=== PATIENT | male | born 2005 | race Caucasian/White ===

== ENCOUNTER 2024-10-19 16:24 | Emergency (ER) | payer SELFPAY ==
--- NOTE | ~2024-10-19 | XR_ITS ---
XR chest 2V DATE: 10/19/2024 17:11 INDICATION: Painful breathing TECHNIQUE: PA and lateral views COMPARISON: None FINDINGS: Normal heart size. No hilar or mediastinal enlargement. No pulmonary infiltrate or consolid ation, pleural effusion or pulmonary vascular congestion or pneumothorax is detected. Mild mid thorac ic dextroscoliosis. IMPRESSION: No active cardiopulmonary disease Reviewed, dictated and finalized at location A. [facility]
[2024-10-19 16:39] VITALS: BP 119/64; PULSE 79; RESP 16; TEMP 37.1; O2SAT 99
--- NOTE | 2024-10-19 16:48 | ED_ITS ---
HPI - URI/Sore Throat General Chief Complaint: Upper Respiratory Infection Stated Complaint: Chest Pain Time Seen by Provider: 10/19/24 16:49 Source: patient Mode of arrival: ambulatory Limitations: no limitations History of Present Illness HPI Narrative: 19 y/o male presented for c/o chest pain with breathing. Reports painful inspiration for 3 days. The pain is frequent, rates Pain 5-8/10, described as sharp across the chest. Endorses similar symptoms intermittently for a few months. Not taking anything for pain. Denies injury or over use. Denies recent cough or illness, sob, wheezing, n/v/d/f/c. Related Data Home Medications Medication Instructions Recorded Confirmed No Home Medications 10/19/24 10/19/24 Allergies Allergy/AdvReac Type Severity Reaction Status Date / Time No Known Allergies Allergy Verified 10/19/24 16:58 Review of Systems Review of Systems: CONSTITUTIONAL: Denies body aches, fever, chills, or sweats. EYES: Denies visual changes, redness, or discharge. ENT: Denies rhinorrhea, congestion, sore throat, or otalgia. CARDIOVASCULAR: Denies chest pain, palpitations, or edema. RESPIRATORY: reports painful respirations Denies cough or dyspnea. GASTROINTESTINAL: Denies abdominal pain, nausea, vomiting, or diarrhea. SKIN: Denies rash or wounds. NEUROLOGIC: Denies headache, numbness, tingling, or weakness. All systems reviewed & are unremarkable except as noted in HPI and below PMFSH Comments At time of signature, I have reviewed and agree with nursing past medical, surgical, social and family history unless otherwise noted. Please see nursing chart for further information. There is no relevant family history pertinent to the presenting complaint Exam Narrative: GENERAL: Well-appearing, in no acute distress. EYES: EOMI. No redness or drainage. Conjunctivae normal. ENT: Mucous membranes pink and moist. No rhinorrhea. CHEST: No respiratory distress. Clear to auscultation. HEART: Regular rate and rhythm. No murmur appreciated. Normal peripheral pulses. MUSCULOSKELETAL: No bony tenderness. Nontender chest with palpation. SKIN: Warm, dry, no rash. Capillary refill normal. Normal skin turgor. NEURO: No focal deficits. Alert and oriented x3 PSYCH: Normal affect. Course Course Emergency Course: Patient is aware of diagnosis, understands and agrees to treatment plan. Anticipatory guidance given. Patient agrees to follow-up as directed and is aware of reasons to seek care at the emergency department. Portions of this record may have been created with voice recognition software Level of Care: Express Care Visit Vital Signs Vital signs: Vital Signs Temperature 98.7 F 10/19/24 16:39 Pulse Rate 79 10/19/24 16:39 Respiratory Rate 16 10/19/24 16:39 Blood Pressure 119/64 10/19/24 16:39 Pulse Oximetry 99 10/19/24 16:39 Temperature 98.7 F 10/19/24 16:39 Pulse Rate 79 10/19/24 16:39 Respiratory Rate 16 10/19/24 16:39 Blood Pressure 119/64 10/19/24 16:39 Pulse Oximetry 99 10/19/24 16:39 MDM - URI/Sore Throat MDM Narrative Medical decision making narrative: Discussed physical exam findings, EKG and CXR with pt. Offer ER transfer. Pt states he will monitor symptoms and may decide to go tomorrow. Discussed possible causes with pt. Advised supportive measures and signs/symptoms to go to the ER. 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 No hilar or mediastinal enlargement. No pulmonary infiltrate or consolidation, pleural effusion or pulmonary vascular congestion or pneumothorax is detected. Mild mid thoracic dextroscoliosis. IMPRESSION: No active cardiopulmonary disease ECG Data EKG #1: Attestation: I personally reviewed and interpreted this ECG as follows: (NSR with arrhythmia; rate 71, OH 133, QRS 92, QT/QTC 346/369) ECG completion date: 10/19/24 ECG completion time: 17:14 Prior ECG tracings: not available for review EKG Interpretation: normal rate and sinus rhythm Discharge Plan Discharge Clinical Impression: Painful respiration Patient Disposition: Left Against Medical Advice Condition: Stable Instructions: Noncardiac Chest Pain (ED) Additional Instructions: Rest. Avoid pushing, pulling, lifting or anything that worsens the symptoms Tylenol 1000mg every 8 hours as needed You can alternate with ibuprofen 600mg Follow up with your primary care provider in 2 days, call tomorrow to schedule appointment Go to the ER for worsening symptoms or concerns Prescriptions: No Action No Home Medications Follow-up/Referrals: PHYSICIAN,USED [employer] WORKER [Primary Care Provider] - Time of Disposition: 17:33
--- NOTE | 2024-10-19 17:04 | ECG_ITS ---
Test Date: 2024-10-19 17:14:47 Measurements Intervals [place] Rate: 71 P: 44 OK: 133 QRS: 85 QRSD: 92 T: 70 QT: 346 QTc: 377 Interpretive Statements SINUS RHYTHM WITH SINUS ARRHYTHMIA BASELINE ARTIFACT- I, II, III, AVR, AVL, AVF, V1 NORMAL ECG No previous ECG available for comparison Electronically Signed On 10-19-2024 18:42:44 ANIMAL RESEARCHER by Juan R Perez D.O.
== END 2024-10-19 17:34 | disposition left against medical advice (07) ==
PROVIDERS: Emergency Provider Nurse Practitioner Family
DX: R07.1 Chest pain on breathing (principal)
CPT/HCPCS: 71046; 93005; 99213; G0463